=== PATIENT | female | born 1965 | race Two or more races ===

== ENCOUNTER 2016-12-17 13:35 | Emergency (ER) | payer MEDICAID ==
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
== END 2016-12-17 14:25 | disposition disaster alternative care site (69) ==
LOC: GACC 13:35
DX: S93.401A Sprain of unspecified ligament of right ankle, initial encounter (principal); S60.222A Contusion of left hand, initial encounter; Z87.891 Personal history of nicotine dependence; W10.9XXA Fall (on) (from) unspecified stairs and steps, initial encounter; Y92.009 Unspecified place in unspecified non-institutional (private) residence as the place of occurrence of the external cause